=== PATIENT | female | born 1980 | race Caucasian/White ===

== ENCOUNTER 2017-03-14 09:24 | Day surgery (SDC) | payer BC ==
[~2017-03-14 09:24] MED LIST: Fluorescein 5 ML Vial ONE; Lactated Ringers 1,000 ML IV SCH; Lidocaine 2% 5 ML SDV ONE; Midazolam 1 MG/ML 2 ML SDV ONE; Ondansetron 4 MG/2 ML SDV ONE; Propofol 200 MG/20 ML SDV ONE; Sodium Chloride 0.9% 10 ML Syringe FLUSH PRN; Sodium Chloride 0.9% 2.5 ML Syringe FLUSH PRN; fentaNYL 100 MCG/2 ML SDV IVPUSH PRN; fentaNYL 100 MCG/2 ML SDV ONE
--- NOTE | 2017-03-14 10:04 | PCM.PREANE ---
Preanesthetic Assessment - Anesthesia/Transfusion/Family Hx Anesthesia History: Prior Anesthesia Reaction Family History of Anesthesia Reaction: No Transfusion History: No Prior Transfusion(s) Intubation History: Unknown - Review of Systems General: No Symptoms Pulmonary: No Symptoms Cardiovascular: No Symptoms Gastrointestinal: No Symptoms Neurological: No Symptoms Other: Reports: None - Physical Assessment NPO Status Date: 03/13/17 NPO Status Time: 23:32 O2 Sat by Pulse Oximetry: 97 Respiratory Rate: 16 Vital Signs: Last Vital Signs Temp 36.4 C 03/14/17 09:39 Pulse 73 03/14/17 09:39 Resp 16 03/14/17 09:39 BP 116/68 03/14/17 09:39 Pulse Ox 97 03/14/17 09:39 Height: 1.91 m Weight: 118.841 kg ASA Class: 2 Mental Status: Alert & Oriented x3 Airway Class: Mallampati = 2 Dentition: Reports: Normal Dentition, Partial (lower fixed, upper removable) Thyro-Mental Finger Breadths: 3 Mouth Opening Finger Breadths: 3 ROM/Head Extension: Full Lungs: Clear to Auscultation, Normal Respiratory Effort Cardiovascular: Regular Rate, Regular Rhythm - Lab Values: Laboratory Last Values WBC 9.31 K/uL (4.0-11.0) 03/13/17 18:16 RBC 4.41 M/uL (4.30-5.90) 03/13/17 18:16 Hgb 12.0 g/dL (12.0-16.0) 03/13/17 18:16 Hct 37.4 % (36.0-46.0) 03/13/17 18:16 MCV 84.8 fL (80.0-98.0) 03/13/17 18:16 MCH 27.2 pg (27.0-32.0) 03/13/17 18:16 MCHC 32.1 g/dL (31.0-37.0) 03/13/17 18:16 RDW Std Deviation 49.2 fl (28.0-62.0) 03/13/17 18:16 RDW Coeff of Jack 16 % (11.0-15.0) H 03/13/17 18:16 Plt Count 233 K/uL (150-400) 03/13/17 18:16 MPV 12.10 fL (7.40-12.00) H 03/13/17 18:16 Add Manual Diff YES 03/13/17 18:16 Neutrophils % (Manual) 74 % (48.0-80.0) 03/13/17 18:16 Band Neutrophils % 1 % 03/13/17 18:16 Lymphocytes % (Manual) 20 % (16.0-40.0) 03/13/17 18:16 Monocytes % (Manual) 3 % (0.0-15.0) 03/13/17 18:16 Eosinophils % (Manual) 1 % (0.0-7.0) 03/13/17 18:16 Basophils % (Manual) 1 % (0.0-1.5) 03/13/17 18:16 Nucleated RBC % 0.0 /100WBC 03/13/17 18:16 Absolute Seg Neuts 6.9 (1.4-5.7) H 03/13/17 18:16 Band Neutrophils # 0.1 03/13/17 18:16 Lymphocytes # (Manual) 1.9 (0.6-2.4) 03/13/17 18:16 Monocytes # (Manual) 0.3 (0.0-0.8) 03/13/17 18:16 Eosinophils # (Manual) 0.1 (0.0-0.7) 03/13/17 18:16 Basophils # (Manual) 0.1 (0.0-0.1) 03/13/17 18:16 Nucleated RBCs # 0 K/uL 03/13/17 18:16 HCG, Qual NEGATIVE (NEG) 03/13/17 18:16 - Allergies Allergies/Adverse Reactions: Allergies Allergy/AdvReac Type Severity Reaction Status Date / Time Penicillins Allergy Airway Verified 03/13/17 10:40 Tightness - Blood Blood Available: No - Anesthesia Plan Pre-Op Medication Ordered: None - Acknowledgements Anesthesia Type Planned: General Anesthesia Pt an Appropriate Candidate for the Planned Anesthesia: Yes Alternatives and Risks of Anesthesia Discussed w Pt/Guardian: Yes Pt/Guardian Understands and Agrees with Anesthesia Plan: Yes PreAnesthesia Questionnaire Other HEENT History: wears glasses/contacts Other Genitourinary History: urethral structure, UTI's [employer] History: Reports: Musculoskeletal History: Reports: Arthritis Other Musculoskeletal History: right elbow and right knee Endocrine/Metabolic History: Reports: Obesity/BMI 30+ - Past Surgical History Head Surgeries/Procedures: Reports: None HEENT Surgical History: Reports: Oral Surgery, Tonsillectomy Other HEENT Surgeries/Procedures: multiple teeth removed GI Surgical History: Reports: Appendectomy, Hernia Repair/Other Female Surgical History: Reports: Section, Tubal Ligation, Other ( See Below) Other Female Surgeries/Procedures: multiple bladder surgeries (at least 5), urethral dilatations Musculoskeletal Surgical History: Reports: ORIF Other Musculoskeletal Surgeries/Procedures:: ORIF right elbow fx, ORIF right knee( multiple surgeries at least 9 -on right knee including ACL) - SUBSTANCE USE Smoking Status *Q: Current Every Day Smoker (> 1/2 ppd) Tobacco Use Within Last Twelve Months: Cigarettes Recreational Drug Use History: No - HOME MEDS Home Medications: Home Meds . [No Known Home Meds] 03/13/17 [History] - CURRENT (IN HOUSE) MEDS Current Meds: Current Medications Fentanyl (Sublimaze) 50 mcg IVPUSH Q5M PRN PRN Reason: Pain (severe 7-10) Stop: 03/15/17 08:47 Lactated Ringer's (Ringers, Lactated) 1,000 mls @ 125 mls/hr IV ASDIRECTED REAGAN Last Admin: 03/14/17 09:42 Dose: 125 mls/hr Sodium Chloride (Saline Flush) 10 ml FLUSH ASDIRECTED PRN PRN Reason: Keep Vein Open Sodium Chloride (Saline Flush) 2.5 ml FLUSH ASDIRECTED PRN PRN Reason: Keep Vein Open Discontinued Medications Fentanyl (Sublimaze) Confirm Administered Dose 200 mcg .ROUTE .STK-MED ONE Stop: 03/14/17 08:29 Fluorescein Sodium (Ak-Fluor) Confirm Administered Dose 5 ml .ROUTE .STK-MED ONE Stop: 03/14/17 07:35 Lidocaine (Xylocaine-Mpf 2%) Confirm Administered Dose 5 ml .ROUTE .STK-MED ONE Stop: 03/14/17 08:29 Midazolam HCl (Versed 1 Mg/Ml) Confirm Administered Dose 2 mg .ROUTE .STK-MED ONE Stop: 03/14/17 08:29 Ondansetron HCl (Zofran) Confirm Administered Dose 4 mg .ROUTE .STK-MED ONE Stop: 03/14/17 08:29 Propofol (Diprivan 20 Ml) Confirm Administered Dose 200 mg .ROUTE .[facility] ONE Stop: 03/14/17 08:29
[2017-03-14] MEDS ORDERED: Propofol 200 MG/20 ML SDV ONE (12:59)
[2017-03-14] MEDS ORDERED: Metoclopramide 10 MG/2 ML SDV ONE (13:09)
--- NOTE | 2017-03-14 13:38 | PCM.OPNOTE ---
- General Post-Op/Procedure Note Date of Surgery/Procedure: 03/14/17 Operative Procedure(s): operative hysteroscopy, polypectomy placement of Mirena IUD for menorrhagia. Findings: 2 cm lower left anterior endometrial polyp, otherwise normal uterine cavity. Uterus anteverted sounds to 9 cm. Pre Op Diagnosis: menorrhagia, endometrial polyp. Post-Op Diagnosis: Same Anesthesia Technique: General LMA Primary Surgeon: Hilary Coleman Secondary Surgeon: David Landon Anesthesia Provider: Kaylee Henderson Pathology: endometrial polyp, with uterine curettings. EBL in mLs: 20 Drain/Tube Comments:: hysteroscopic deficit 120 ml NS Complications: None Condition: Good
--- NOTE | 2017-03-14 14:09 | PCM.POSTAN ---
POST ANESTHESIA ASSESSMENT - MENTAL STATUS Mental Status: Alert, Oriented - RESPIRATORY Respiratory Status: Respiratory Rate WNL, Airway Patent, O2 Saturation Stable - CARDIOVASCULAR CV Status: Pulse Rate WNL, Blood Pressure Stable - GASTROINTESTINAL GI Status: No Symptoms - PAIN Pain Score: 0 - POST OP HYDRATION Hydration Status: Adequate & Stable - OBSERVATIONS Free Text/Narrative:: no anestrhesia problems
--- NOTE | 2017-03-15 11:02 | OR ---
SURGEON: Hilary Coleman M.D. DATE OF PROCEDURE: 03/14/2017 PREOPERATIVE DIAGNOSES: Menometrorrhagia and uterine polyp. POSTOPERATIVE DIAGNOSES: Menometrorrhagia and uterine polyp. PROCEDURES: Hysteroscopic polypectomy with Mirena IUD insertion for menorrhagia. MANUFACTURING WEAVER: AKILA Ayala. ANESTHESIA: General LMA. FLUID: Hysteroscopic deficit was 120 mL of normal saline. ESTIMATED BLOOD LOSS: Less than 20 mL. FINDINGS: The upper uterine cavity appeared completely normal. The uterine cavity was completely evaluated. There was a 2 cm left lower anterior endometrial polyp that was removed. The uterus was anteverted and sounds to 9 cm. COMPLICATION: None known. DISPOSITION: Stable to recovery. BRIEF HISTORY: This is a 37-year-old female. She presented with complaint of menometrorrhagia. Sonohysterogram showed a lesion 1.2 cm within the endometrium upon saline enhanced ultrasound, I recommended proceeding with a hysteroscopic polypectomy, and I offered her options, including consideration of a Mirena. She is not a candidate for the Elli, due to prior Essure procedure, and therefore, she desired to proceed with a hysteroscopic polypectomy and placement of Mirena IUD with surgical risk of hysteroscopy including bleeding, infection, uterine perforation with injury to surrounding organs, risk of fluid overload, risk of thromboembolism, and anesthesia risk. The Mirena IUD for menorrhagia was discussed, including the risk of PID and sexually transmitted infection occurs. She need to be monogamous or use condoms. I reviewed that, at insertion, there is a risk of perforation requiring surgical removal, she also understands that irregular bleeding in the first 3 or 6 months after insertion is normal. She understands that, after this time period, she will usually experience light periods or absent. She understands the need to have IUD changed or removed after 5 years, and she was instructed on checking the IUD string on a monthly basis. IUD was provided by the clinic and the lot number was [id number], expiration date of 08/2019. DESCRIPTION OF PROCEDURE: With the patient in dorsolithotomy position, under adequate general LMA analgesia, the perineum and vagina were prepped with Betadine and draped in usual fashion for vaginal surgery. SCDs were in place. The bladder had been drained with a straight catheter. An appropriate time-out was held. Bimanual examination revealed an 8 week size anteverted uterus. Speculum was placed in the vagina. The cervix was grasped with an Allis clamp. The cervix was easily dilated to an 8 mm Hegar dilator. The 0-degree hysteroscope was placed into the uterine cavity, and with saline as a distending medium, there was excellent visualization. The fundus appeared normal. Bilateral tubal ostia were identified and appeared normal. The anterior left lower uterine segment polyp was removed using the MyoSure, and sampling was taken of the remainder of the endometrium as well. This being completed, the MyoSure and hysteroscope were removed from the uterine cavity, and the uterus had been sounded to 9 cm. The Mirena IUD stop was placed at 9 cm. The IUD was retracted and was placed to the fundus, it was released to the first stop and then completely released without any difficulty. The strings were then trimmed to 3 cm. All the instruments were removed from the vagina. Final sponge, needle, and instrument counts were reported as correct. There were no known complications. The patient was transferred to recovery in good condition. ODELL MEYERS /[id number]
== END 2017-03-14 15:15 | disposition home or self-care (01) ==
LOC: MW.SDS 09:24
PROVIDERS: ATTEND Obstetrics & Gynecology
DX: N85.01 Benign endometrial hyperplasia (principal); Z30.430 Encounter for insertion of intrauterine contraceptive device; Z88.0 Allergy status to penicillin; Z79.899 Other long term (current) drug therapy; Z98.890 Other specified postprocedural states; Z90.49 Acquired absence of other specified parts of digestive tract; Z98.51 Tubal ligation status; F17.210 Nicotine dependence, cigarettes, uncomplicated
CPT/HCPCS: 36415; 58300; 58558; 84703; 85025; 88305; J2250; J2405; J2765; J3010; J7120; 00952; J2704